=== PATIENT | male | born 1975 | race African-American/Black ===

== ENCOUNTER 2016-04-28 07:16 | Emergency (ER) | payer BC ==
--- NOTE | 2016-04-28 07:21 | EDM.PDOC ---
ED HPI GI/ABDOMINAL - General Stated Complaint: STOMACH PAIN Time Seen by Provider: 04/28/16 07:19 Source of Information: Reports: Patient History Limitations: Reports: No limitations - History of Present Illness INITIAL COMMENTS - FREE TEXT/NARRATIVE: History of present illness: [] Patient presents with 6 days of abdominal pain and a cough. He is now in his right lower quadrant. He denies fevers, nausea, vomiting, diarrhea and states that he is also constipated and has had chills. He states his took care of him earlier in the week and now she is sick. Patient was seen in [place] for the same reasons and put on an antibiotic he is currently taking. Review of systems: As per history of present illness and below otherwise all systems reviewed and negative. Past medical history: As per history of present illness and as reviewed below otherwise noncontributory. Surgical history: As per history of present illness and as reviewed below otherwise noncontributory. Social history: No reported history of drug or alcohol abuse. Family history: As per history of present illness and as reviewed below otherwise noncontributory. Physical exam: General: Well developed, well nourished in NAD HEENT: Atraumatic, normocephalic, pupils reactive, negative for conjunctival pallor or scleral icterus, mucous membranes moist, throat clear, neck supple, nontender, trachea midline. Lungs: Clear to auscultation, breath sounds equal bilaterally, chest nontender. Heart: S1S2, regular, negative for clicks, rubs, or JVD. Abdomen: Soft, nondistended, nontender. Negative for masses or hepatosplenomegaly. Negative for costovertebral tenderness. Pelvis: Stable nontender. Genitourinary: Deferred. Rectal: Deferred. Extremities: Atraumatic, negative for cords or calf pain. Neurovascular unremarkable. Neuro: Awake, alert, oriented. Cranial nerves II through XII unremarkable. Cerebellum unremarkable. Motor and sensory unremarkable throughout. Exam nonfocal. Diagnostics: [] Labs UA CT abdomen pelvis show left lower lobe infiltrate. Normal appendix no bowel obstruction and no kidney stones Therapeutics: [] Toradol for pain IV hydrated Impression: [] Lower lobe pneumonia Plan: [] Followup PMD continue antibiotic given previously, return to ER if symptoms worsen Definitive disposition and diagnosis as appropriate pending reevaluation and review of above. - Related Data Allergies/ADRs: Allergies Allergy/AdvReac Type Severity Reaction Status Date / Time No Known Allergies Allergy Verified 04/28/16 07:21 Home Meds: Home Meds Cefdinir [Omnicef] 300 mg PO BID 04/28/16 [History] ED ROS GENERAL - Review of Systems Review Of Systems: See Below (See history of present illness) ED EXAM, GI/ABD - Physical Exam Exam: See Below (See history of present illness) Course - Vital Signs Last Recorded V/S: Last Vital Signs Temp 37.1 C 04/28/16 08:43 Pulse 82 04/28/16 08:43 Resp 16 04/28/16 07:27 BP 125/75 04/28/16 08:43 Pulse Ox 97 04/28/16 07:27 - Orders/Labs/Meds Orders: Active Orders 24 hr Category Date Time Status Abdomen Pelvis wo Cont [CT] Stat Exams 04/28/16 08:40 Ordered Chest 2V [CR] Stat Exams 04/28/16 07:37 Taken Sodium Chloride 0.9% [Normal Saline] 1,000 ml Med 04/28/16 08:40 Ordered IV .Bolus Sodium Chloride 0.9% [Saline Flush] Med 04/28/16 07:30 Active 10 ml FLUSH ASDIRECTED PRN Sodium Chloride 0.9% [Saline Flush] Med 04/28/16 07:30 Active 2.5 ml FLUSH ASDIRECTED PRN Peripheral IV Insertion Adult [OM.PC] Stat Oth 04/28/16 07:30 Ordered Medication Orders Sodium Chloride (Normal Saline) 1,000 mls @ 999 mls/hr IV .Bolus ONE Stop: 04/28/16 09:40 Last Admin: 04/28/16 08:50 Dose: 999 mls/hr Sodium Chloride (Saline Flush) 10 ml FLUSH ASDIRECTED PRN PRN Reason: Keep Vein Open Sodium Chloride (Saline Flush) 2.5 ml FLUSH ASDIRECTED PRN PRN Reason: Keep Vein Open Labs: Laboratory Tests 04/28/16 04/28/16 04/28/16 Range/Units 07:40 07:40 07:50 WBC 9.60 (4.0-11.0) K/uL RBC 5.32 (4.50-5.90) M/uL Hgb 14.9 (13.0-17.0) g/dL Hct 44.2 (38.0-50.0) % MCV 83.1 (80.0-98.0) fL MCH 28.0 (27.0-32.0) pg MCHC 33.7 (31.0-37.0) g/dL RDW Std Deviation 39.6 (28.0-62.0) fl RDW Coeff of Yessenia 13 (11.0-15.0) % Plt Count 157 (150-400) K/uL MPV 10.10 (7.40-12.00) fL Add Manual Diff YES Neutrophils % (Manual) 61 (48.0-80.0) % Band Neutrophils % 4 % Lymphocytes % (Manual) 30 (16.0-40.0) % Monocytes % (Manual) 5 (0.0-15.0) % Nucleated RBC % 0.0 /100WBC Absolute Seg Neuts 5.9 Band Neutrophils # 0.4 Lymphocytes # (Manual) 2.9 Monocytes # (Manual) 0.5 Nucleated RBCs # 0 K/uL Sodium 137 (136-146) mmol/L Potassium 3.9 (3.5-5.1) mmol/L Chloride 104 (98-110) mmol/L Carbon Dioxide 25 (21-31) mmol/L BUN 17 (6.0-23.0) mg/dL Creatinine 1.6 H (0.6-1.5) mg/dL Est Cr Clr Drug Dosing 61.99 mL/min Estimated GFR (MDRD) 58.6 ml/min Glucose 110 (60-110) mg/dL Calcium 8.6 L (8.8-10.8) mg/dL Total Bilirubin 0.6 (0.1-1.5) mg/dL AST 19 (5-40) IU/L ALT 22 (8-54) IU/L Alkaline Phosphatase 59 (40-150) Total Protein 7.6 (6.0-8.0) g/dL Albumin 3.8 (3.5-5.0) g/dL Globulin 3.8 H (2.0-3.5) g/dL Albumin/Globulin Ratio 1.0 L (1.3-2.8) Lipase 28 (7-80) U/L Urine Color YELLOW Urine Appearance CLEAR Urine pH 6.0 (5.0-8.0) Ur Specific [place] 1.025 (1.001-1.035) Urine Protein 30 (NEGATIVE) mg/dL Urine Glucose (UA) NEGATIVE (NEGATIVE) mg/dL Urine Ketones NEGATIVE (NEGATIVE) mg/dL Urine Occult Blood LARGE H (NEGATIVE) Urine Nitrite NEGATIVE (NEGATIVE) Urine Bilirubin NEGATIVE (NEGATIVE) Urine Urobilinogen 1.0 (<2.0) EU/dL Ur Leukocyte Esterase NEGATIVE (NEGATIVE) Urine RBC 2-4 (0-2/HPF) Urine WBC 0-1 (0-5/HPF) Ur Epithelial Cells RARE (NONE-FEW) Urine Bacteria FEW (NEGATIVE) Meds: Medications Generic Name Dose Route Start Last Admin Trade Name Freq PRN Reason Stop Dose Admin Sodium Chloride 1,000 mls @ 999 mls/hr 04/28/16 08:40 04/28/16 08:50 Normal Saline IV 04/28/16 09:40 999 mls/hr .Bolus ONE Administration Sodium Chloride 10 ml 04/28/16 07:30 Saline Flush FLUSH ASDIRECTED PRN Keep Vein Open Sodium Chloride 2.5 ml 04/28/16 07:30 Saline Flush FLUSH ASDIRECTED PRN Keep Vein Open Discontinued Medications Generic Name Dose Route Start Last Admin Trade Name Freq PRN Reason Stop Dose Admin Sodium Chloride 1,000 mls @ 999 mls/hr 04/28/16 07:30 04/28/16 07:55 Normal Saline IV 04/28/16 08:30 999 mls/hr .Bolus ONE Administration Ketorolac Tromethamine 30 mg 04/28/16 09:32 Toradol IVPUSH 04/28/16 09:33 ONETIME ONE Departure - Departure Time of Disposition: 09:35 Disposition: Home, Self-Care 01 Condition: good Clinical Impression: Left lower lobe pneumonia Qualifiers: Pneumonia type: due to unspecified organism Qualified Code(s): J18.1 - Lobar pneumonia, unspecified organism Additional Instructions: The following information is given to patients seen in the emergency department who are being discharged to home. This information is to outline your options for follow-up care. We provide all patients seen in our emergency department with a follow-up referral. The need for follow-up, as well as the timing and circumstances, are variable depending upon the specifics of your emergency department visit. If you don't have a primary care physician on staff, we will provide you with a referral. We always advise you to contact your personal physician following an emergency department visit to inform them of the circumstance of the visit and for follow-up with them and/or the need for any referrals to a consulting specialist. The emergency department will also refer you to a specialist when appropriate. This referral assures that you have the opportunity for follow-up care with a specialist. All of these measure are taken in an effort to provide you with optimal care, which includes your follow-up. Under all circumstances we always encourage you to contact your private physician who remains a resource for coordinating your care. When calling for follow-up care, please make the office aware that this follow-up is from your recent emergency room visit. If for any reason you are refused follow-up, please contact the [facility] Emergency Department at and asked to speak to the emergency department charge nurse. [facility] [address] [place] [id number] - My Orders Last 24 Hours: My Active Orders 04/28/16 07:30 Sodium Chloride 0.9% [Saline Flush] 10 ml FLUSH ASDIRECTED PRN Sodium Chloride 0.9% [Saline Flush] 2.5 ml FLUSH ASDIRECTED PRN Peripheral IV Insertion Adult [OM.PC] Stat 04/28/16 07:37 Chest 2V [CR] Stat 04/28/16 08:40 Abdomen Pelvis wo Cont [CT] Stat Sodium Chloride 0.9% [Normal Saline] 1,000 ml IV .Bolus - Assessment/Plan Last 24 Hours: My Active Orders 04/28/16 07:30 Sodium Chloride 0.9% [Saline Flush] 10 ml FLUSH ASDIRECTED PRN Sodium Chloride 0.9% [Saline Flush] 2.5 ml FLUSH ASDIRECTED PRN Peripheral IV Insertion Adult [OM.PC] Stat 04/28/16 07:37 Chest 2V [CR] Stat 04/28/16 08:40 Abdomen Pelvis wo Cont [CT] Stat Sodium Chloride 0.9% [Normal Saline] 1,000 ml IV .Bolus
[2016-04-28] MEDS ORDERED: Sodium Chloride 0.9% 10 ML Syringe FLUSH PRN (07:30)
[2016-04-28] MEDS ORDERED: Sodium Chloride 0.9% 2.5 ML Syringe FLUSH PRN (07:30)
[2016-04-28] MEDS ORDERED: Sodium Chloride 0.9% 1,000 ML IV ONE ×2 (07:30→08:40)
[2016-04-28] MEDS ORDERED: Ketorolac 30 MG/ML SDV IVPUSH ONE (09:32)
[2016-04-28 10:03] VITALS: BP 119/76
--- NOTE | 2016-04-29 10:57 | CR ---
EXAM DATE: 04/28/16 PATIENT'S AGE: 40 Patient: THU LAL Facility: [place], [place] Site . Site : 1975 Study: XRay Chest [id number]/13/2017 7:58:28 AM Ordering Physician: Brad Bowden Final Report: HISTORY: Mid sternal chest pain x1 week. FINDINGS: PA and lateral chest radiograph demonstrates a normal cardiac silhouette. Pulmonary vasculature is free of cephalization. No lobar consolidation or pleural effusion is seen. The bony structures are normal. IMPRESSION: No acute cardiopulmonary disease. Dictated by Sonia Peña MD @ 04/28/2016 8:08:41 AM Dictated by: Sonia Peña MD @ 04/28/2016 08:08:50 (Electronic Signature) Report Signed by Proxy and Original Signed Document filed in the Medical Record. [place]
--- NOTE | 2016-04-29 10:58 | CT ---
EXAM DATE: 04/28/16 PATIENT'S AGE: 40 Patient: THU LAL Facility: [place], [place] Site . Site : 1975 Study: CT Abdomen/Pelvis [id number]/13/2017 9:06:42 AM Ordering Physician: Brad Bowden Final Report: HISTORY: Pain. TECHNIQUE: The abdomen and pelvis were scanned using helical technique at 3 mm intervals without IV or oral contrast. Sagittal and coronal reconstructions were performed. FINDINGS: Lung bases: There is patchy nodular infiltrate seen in the anterior aspect left lower lobe with a small amount in the right lower lobe. Liver and gallbladder: Unenhanced liver is homogeneous. No calcified gallstones. Spleen, pancreas and adrenal glands: Unremarkable. Kidneys and bladder: No calcified urolithiasis or hydronephrosis. The bladder is decompressed and unremarkable in appearance. Retroperitoneum and lymph node: Abdominal aorta is normal in caliber. There is a few small periaortic lymph nodes present. No pathologic periaortic or pelvic sidewall lymphadenopathy is seen. GI tract: Stomach decompressed. There is some fluid seen in nondilated small bowel loops. The appendix is normal. There is liquid stool seen in ascending and transverse colon. There is no free air in the abdomen. There is no free fluid the pelvis. Pelvic organs: Prostate is within normal limits. Abdominal wall: There is a small fat containing umbilical hernia without incarceration. 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 IMPRESSION: 1. No calcified urolithiasis, hydronephrosis or ureteral obstruction. 2. Patchy and nodular infiltrate is seen within the inferior aspect left lower lobe as well as a small amount in the right base. 3. There is some fluid seen in nondilated small bowel as well as liquid stool in the ascending and transverse colon suggesting enteritis. 4. No bowel obstruction, free air or free fluid. 5. Normal appendix. Dictated by Sonia Peña MD @ 04/28/2016 9:18:21 AM Dictated by: Sonia Peña MD @ 04/28/2016 09:18:38 (Electronic Signature) Report Signed by Proxy and Original Signed Document filed in the Medical Record. NATASHA
== END 2016-04-28 09:58 | disposition home or self-care (01) ==
LOC: MW.ED 07:16
DX: J18.9 Pneumonia, unspecified organism (principal); K59.00 Constipation, unspecified
CPT/HCPCS: 36415; 71020; 74176; 80053; 81001; 83690; 85025; 96361; 96374; 99284; J1885; J7040